=== PATIENT | female | born 1960 | race Caucasian/White ===

== ENCOUNTER → 2024-04-07 10:06 | Outpatient (REF) | payer BC, SELFPAY | LOC: RAD 10:06 | PROVIDERS: ATTENDING PHYSICIAN Internal Medicine Cardiovascular Disease; FAMILY PHYSICIAN Family Medicine | DX: R07.9 Chest pain, unspecified (principal); I10 Essential (primary) hypertension; I34.0 Nonrheumatic mitral (valve) insufficiency; R42 Dizziness and giddiness; R06.09 Other forms of dyspnea; R94.39 Abnormal result of other cardiovascular function study | CPT/HCPCS: 75574; Q9967 ==